=== PATIENT | male | born 1970 | race American Indian/Alaskan Native ===

== ENCOUNTER 2019-09-08 02:59 | Emergency (ER) | payer SELFPAY ==
[2019-09-08 03:33] LABS: Basophils # (Auto) 0.1 K/mm3 (0.0-0.1); Basophils % (Auto) 0.9 % (0.0-1.8); Eosinophils # (Auto) 0.1 K/mm3 (0.0-0.4); Eosinophils % (Auto) 0.8 % (0.0-4.3); Hematocrit 45.2 % (35.5-45.6); Hemoglobin 15.7 gm/dl (11.8-15.2); Lymphocytes # (Auto) 3.8 K/mm3 (1.2-5.4); Lymphocytes % (Auto) 40.4 % (13.4-35.0); Mean Corpuscular HGB Conc 35 % (32-34); Mean Corpuscular Volume 87 fl (84-94); Monocytes # (Auto) 0.9 K/mm3 (0.0-0.8); Monocytes % (Auto) 9.5 % (0.0-7.3); Red Blood Count 5.19 M/mm3 (3.65-5.03); Red Cell Distribution Width 12.8 % (13.2-15.2)
[2019-09-08] MEDS ORDERED: ONDANSETRON 4 MG/2 ML INJ IV ONE (03:35)
[2019-09-08] MEDS ORDERED: SUCRALFATE 1 GM/10 ML ORAL LIQD PO ONE (03:35)
[2019-09-08] MEDS ORDERED: SODIUM CHLORIDE 0.9% 1000 ML 1,000 ML IV ONE (03:35)
[2019-09-08] MEDS ORDERED: FAMOTIDINE 20 MG/2 ML INJ IV ONE (03:35)
[2019-09-08] MEDS ORDERED: ACETAMINOPHEN 325 MG TAB PO ONE (03:35)
[2019-09-08 03:40] LABS: Platelet Count 207 K/mm3 (140-440)
[2019-09-08 03:42] LABS: Bilirubin,Urine NEG (Negative); Blood,Urine SM (Negative); Color,Urine Yellow (Yellow); Mucus,Urine 3+ /HPF; Protein,Urine <15 mg/dL mg/dL (Negative)
[2019-09-08 03:56] LABS: Alanine Aminotransferase 14 units/L (7-56); Albumin 4.6 g/dL (3.9-5); BUN/Creatinine Ratio 14; Blood Urea Nitrogen 11 mg/dL (9-20); Calcium 9.1 mg/dL (8.4-10.2); Hemolysis Index 11
--- NOTE | 2019-09-08 04:05 | Emergency Department Report ---
ED Abdominal Pain HPI - General Chief Complaint: Abdominal Pain Stated Complaint: ABD PAIN/EMESIS Time Seen by Provider: 09/08/19 03:34 Source: patient, RN notes reviewed Mode of arrival: Ambulatory Limitations: No Limitations - History of Present Illness Initial Comments: The patient is a pleasant 49-year-old gentleman. He is not known to myself previously. He does not have a local primary care doctor. He denies chronic medical conditions. He reports no history of abdominal surgeries. He recreationally consumes marijuana but denies other drug use. He presents to the ER with 3 to 4 days of intermittent tight burning diffuse abdominal cramping, infra epigastric, and supraumbilical. It is associated with a few episodes of nonbloody, nonbilious emesis. He is defecating and urinating normally. He denies headache, neck pain, chest pain, shortness of breath. His symptoms are resolved at this time. He does not know if they improve with a hot bath or hot shower. During his examination, he is laughing and smiling. MD Complaint: abdominal pain -: Gradual, days(s) Location: diffuse Radiation: none Severity: mild Severity scale (0 -10): 8 Quality: cramping Consistency: intermittent Improves With: nothing Worsens With: nothing Associated Symptoms: denies other symptoms, nausea, vomiting. denies: diarrhea, fever - Related Data Previous Rx's Medication Instructions Recorded Last Taken Type Acetaminophen [Non-Aspirin Extra 500 mg PO Q6HR PRN #30 tablet 09/08/19 Unknown Rx Strength] Famotidine [Pepcid] 20 mg PO BID #60 tablet 09/08/19 Unknown Rx Rosa Isela Root [Rosa Isela] 250 mg PO QID PRN #30 capsule 09/08/19 Unknown Rx Metoclopramide [Reglan] 10 mg PO QID PRN #30 tablet 09/08/19 Unknown Rx Allergies Allergy/AdvReac Type Severity Reaction Status Date / Time No Known Allergies Allergy Unverified 09/08/19 03:00 ED Review of Systems ROS: Stated complaint: ABD PAIN/EMESIS Other details as noted in HPI Constitutional: denies: fever Eyes: denies: eye discharge ENT: denies: congestion Respiratory: denies: wheezing Cardiovascular: denies: chest pain, syncope Gastrointestinal: abdominal pain, nausea, vomiting. denies: constipation, hematemesis, melena, hematochezia Genitourinary: denies: dysuria, testicular pain Musculoskeletal: denies: back pain Skin: as per HPI Neurological: as per HPI Psychiatric: as per HPI Hematological/Lymphatic: as per HPI ED Past Medical Hx - Past Medical History Previous Medical History?: No - Surgical History Past Surgical History?: No - Social History Smoking Status: Current Some Day Smoker Substance Use Type: None, Marijuana - Medications Home Medications: Home Medications Medication Instructions Recorded Confirmed Last Taken Type Acetaminophen [Non-Aspirin Extra 500 mg PO Q6HR PRN #30 tablet 09/08/19 Unknown Rx Strength] Famotidine [Pepcid] 20 mg PO BID #60 tablet 09/08/19 Unknown Rx Rosa Isela Root [Rosa Isela] 250 mg PO QID PRN #30 capsule 09/08/19 Unknown Rx Metoclopramide [Reglan] 10 mg PO QID PRN #30 tablet 09/08/19 Unknown Rx ED Physical Exam - General Limitations: No Limitations General appearance: alert, in no apparent distress - Head Head exam: Present: atraumatic, normocephalic - Eye Eye exam: Present: normal appearance, EOMI. Absent: nystagmus - ENT ENT exam: Present: normal exam, normal orophraynx, mucous membranes moist, normal external ear exam - Neck Neck exam: Present: normal inspection, full ROM. Absent: tenderness, meningismus - Respiratory Respiratory exam: Present: normal lung sounds bilaterally. Absent: respiratory distress, wheezes, rales, rhonchi, stridor - Cardiovascular Cardiovascular Exam: Present: regular rate, normal rhythm, normal heart sounds. Absent: bradycardia, tachycardia, irregular rhythm, systolic murmur, diastolic murmur, rubs, gallop - GI/Abdominal GI/Abdominal exam: Present: soft, normal bowel sounds, other (There is a negative Lozada sign. There is a negative Rovsing sign. There is no right lower quadrant tenderness. There is no abdominal tenderness whatsoever.). Absent: distended, tenderness, guarding, rebound, rigid, pulsatile mass - Rectal Rectal exam: Present: deferred - Extremities Exam Extremities exam: Present: normal inspection, full ROM, other (2+ pulses noted in the bilateral upper and lower extremities. There is no palpable cord. negative Homans sign. Muscular compartments are soft. The pelvis is stable.). Absent: pedal edema, joint swelling, calf tenderness - Back Exam Back exam: Present: normal inspection, full ROM. Absent: tenderness, CVA tenderness (R), CVA tenderness (L), paraspinal tenderness, vertebral tenderness - Neurological Exam Neurological exam: Present: alert, normal gait, other (There is no facial droop. The tongue is midline. Extraocular movements are intact bilaterally. There is 5 out of 5 strength in bilateral upper and lower extremities. Sensation is intact to light touch bilateral upper and lower extremities. ). Absent: motor sensory deficit - Psychiatric Psychiatric exam: Present: normal affect, normal mood - Skin Skin exam: Present: warm, dry, intact, normal color. Absent: rash ED Course Vital Signs 09/08/19 09/08/19 09/08/19 03:03 03:38 04:00 Temperature 98.4 F Pulse Rate 84 73 Respiratory 18 16 Rate Blood Pressure 145/91 146/81 O2 Sat by Pulse 99 99 99 Oximetry 09/08/19 04:45 Temperature Pulse Rate Respiratory 16 Rate Blood Pressure O2 Sat by Pulse Oximetry - Reevaluation(s) Reevaluation #1: 09/08/19 04:39 Reassessed. Tolerating oral feeds. Feels improved. No active vomiting. Endorses improvement in symptoms. We discussed outpatient management recomme ndations. Patient specifically counseled to avoid cannabis consumption. He indicates that he feels ready for discharge. Return precautions are reviewed. ED Medical Decision Making - Lab Data Result diagrams: 09/08/19 03:13 09/08/19 03:13 Vital Signs 09/08/19 03:03 Temperature 98.4 F Pulse Rate 84 Respiratory 18 Rate Blood Pressure 145/91 O2 Sat by Pulse 99 Oximetry Lab Results 09/08/19 09/08/19 09/08/19 Range/Units 03:13 03:13 03:15 WBC 9.5 (4.5-11.0) K/mm3 RBC 5.19 H (3.65-5.03) M/mm3 Hgb 15.7 H (11.8-15.2) gm/dl Hct 45.2 (35.5-45.6) % MCV 87 (84-94) fl MCH 30 (28-32) pg MCHC 35 H (32-34) % RDW 12.8 L (13.2-15.2) % Plt Count 207 (140-440) K/mm3 Lymph % (Auto) 40.4 H (13.4-35.0) % [place] % (Auto) 9.5 H (0.0-7.3) % Eos % (Auto) 0.8 (0.0-4.3) % Baso % (Auto) 0.9 (0.0-1.8) % Lymph # 3.8 (1.2-5.4) K/mm3 [place] # 0.9 H (0.0-0.8) K/mm3 Eos # 0.1 (0.0-0.4) K/mm3 Baso # 0.1 (0.0-0.1) K/mm3 Seg Neutrophils % 48.4 (40.0-70.0) % Seg Neutrophils # 4.6 (1.8-7.7) K/mm3 Sodium 134 L (137-145) mmol/L Potassium 3.7 (3.6-5.0) mmol/L Chloride 94.1 L (98-107) mmol/L Carbon Dioxide 27 (22-30) mmol/L Anion Gap 17 mmol/L BUN 11 (9-20) mg/dL Creatinine 0.8 (0.8-1.5) mg/dL Estimated GFR > 60 ml/min BUN/Creatinine Ratio 14 % Glucose 132 H (75-100) mg/dL Calcium 9.1 (8.4-10.2) mg/dL Total Bilirubin 0.60 (0.1-1.2) mg/dL AST 17 (5-40) units/L ALT 14 (7-56) units/L Alkaline Phosphatase 57 (35-129) units/L Total Protein 7.7 (6.3-8.2) g/dL Albumin 4.6 (3.9-5) g/dL Albumin/Globulin Ratio 1.5 % Lipase 44 (13-60) units/L Urine Color Yellow (Yellow) Urine Turbidity Clear (Clear) Urine pH 5.0 (5.0-7.0) Ur Specific [place] 1.025 (1.003-1.030) Urine Protein <15 mg/dl (Negative) mg/dL Urine Glucose (UA) Neg (Negative) mg/dL Urine Ketones 20 (Negative) mg/dL Urine Blood Sm (Negative) Urine Nitrite Neg (Negative) Urine Bilirubin Neg (Negative) Urine Urobilinogen 4.0 (<2.0) mg/dL Ur Leukocyte Esterase Neg (Negative) Urine WBC (Auto) 3.0 (0.0-6.0) /HPF Urine RBC (Auto) 6.0 (0.0-6.0) /HPF U Epithel Cells (Auto) < 1.0 (0-13.0) /HPF Urine Mucus 3+ /HPF - EKG Data -: EKG Interpreted by Me EKG shows normal: sinus rhythm Rate: normal - EKG Data When compared to previous EKG there are: previous EKG unavailable 09/08/19 04:03 There is no prior EKG available for comparison. The EKG shows a sinus rhythm, with a rate of 68 bpm, there is a left axis deviation, there is a right bundle branch block, with left ventricular hypertrophy, the QTC is within normal limits/442 ms. This EKG is abnormal, there is no endorsement of chest pain, it is not consistent with ST elevation myocardial infarction. - Medical Decision Making Differential diagnosis, including but not limited to: GERD, gastritis, hiatal hernia, IBS, cannabinoid hyperemesis syndrome, constipation Assessment and plan: 49-year-old gentleman with no abdominal tenderness, who smiles and laughs while I examine his abdomen. There is no abdominal tende rness, rebound or guarding or peritoneal signs. There is no active vomiting at this time. His laboratory studies are fairly unremarkable. There is no tenderness to suggest cholecystitis, hepatitis, or pancreatitis, and corroborating laboratory studies are unremarkable. Patient will be given nonn arcotic pain medication and nausea medication, and we will reassess. Critical care attestation.: If time is entered above; I have spent that time in minutes in the direct care of this critically ill patient, excluding procedure time. ED Disposition Clinical Impression: History of abdominal pain, History of nausea and vomiting Disposition: - TO HOME OR SELFCARE Is pt being admited?: No Does the pt Need Aspirin: No Condition: Stable Additional Instructions: Take the pain medication, nausea medications as needed and/or directed. Avoid consumption of alcohol, heavy and spicy foods, marijuana, cannabis, and avoid consumption of Motrin, ibuprofen, Naprosyn, Aleve. Follow-up with a primary care doctor within the next 2 weeks. Return to the emergency room right away with projectile vomiting, change in mental status, confusion, inability to tolerate liquid feeds, new, worsened or different symptoms not present on the initial emergency room evaluation. Prescriptions: Rosa Isela Root [Rosa Isela] 250 mg PO QID PRN #30 capsule PRN Reason: Nausea Acetaminophen [Non-Aspirin Extra Strength] 500 mg PO Q6HR PRN #30 tablet PRN Reason: Pain , Severe (7-10) Famotidine [Pepcid] 20 mg PO BID #60 tablet Metoclopramide [Reglan] 10 mg PO QID PRN #30 tablet PRN Reason: Nausea Referrals: DIANDRA SOUZA MD [Staff Physician] - 3-5 Days [facility] [Provider Group] - 3-5 Days [facility] [Provider Group] - 3-5 Days
[2019-09-08 04:26] VITALS: BP 146/81
== END 2019-09-08 04:30 | disposition home or self-care (01) ==
LOC: ED 02:59
DX: R10.84 Generalized abdominal pain (principal); R11.2 Nausea with vomiting, unspecified; F17.200 Nicotine dependence, unspecified, uncomplicated; F12.10 Cannabis abuse, uncomplicated
CPT/HCPCS: 36415; 80053; 81001; 82550; 83690; 83735; 85025; 93005; 93010; 96361; 96374; 96375; 99284; J2405; J7030